=== PATIENT | female | born 1990 | race Caucasian/White ===

== ENCOUNTER 2018-12-30 12:37 | Outpatient (CLI) | payer OTHER ==
[~2018-12-30] VITALS: Ht 170.2 cm; Wt 94.2 kg
[2018-12-30 13:02] VITALS: BP 115/71
[2018-12-30] MEDS ORDERED: [UNRECOGNIZED DRUG - CODE] PO (13:08)
[2018-12-30] MEDS ORDERED: LEVO112T2 PO (13:08)
--- NOTE | 2018-12-30 13:36 | IPNPDOC ---
Text Note Date of Service The patient was seen on 12/30/18. NOTE 28 yo at 34+5 weeks gestation presented to L&D after her dog ran into her belly and she felt some fluid leakage shortly thereafter. This occurred around 11 am this morning. She has not had any leakage since. She denies any bleeding or pain whatsoever. She endorses excellent movement. She had intercourse with her a couple days ago. is uncomplicated. Chaperoned by L&D RN Vitals - VSS, afebrile, normotensive, non tachycardic General - AAOX3, sitting up in bed, NAD Abdomen - Gravid uterus. No fundal tenderness Pelvic - Normal external genitalia. Speculum placed into the vagina and the cervix was visualized. Scant white discharge in the vaginal vault. Negative pooling. Swab obtained of discharge. Negative nitrazine. Cervix closed. Speculum removed. Cervix cl/thick/high to digital exam. GBS swab obtained. Bedside TAUS - Viable SIUP in cephalic presentation. +FCA. JOEL 14.8cm. +gross movement. Microscopy - ferning negative. Nitrazine negative. FHR tracing - Reactive NST, +accels, no decels, moderate variability. No evidence of ruptured membranes or labor. status reassuring. Patient discharged home with return precautions. all questions answered. DO JOSE Craig CHRISTOPHER J. DO Dec 30, 2018 13:36
== END 2018-12-30 13:35 | disposition home or self-care (01) ==
LOC: M LDO 12:37
PROVIDERS: ATTEND Obstetrics & Gynecology
DX: Z04.3 Encounter for examination and observation following other accident (principal); O26.893 Other specified pregnancy related conditions, third trimester; N89.8 Other specified noninflammatory disorders of vagina; W54.1XXA Struck by dog, initial encounter; Y92.89 Other specified places as the place of occurrence of the external cause; Y93.89 Activity, other specified; Y99.8 Other external cause status; O47.03 False labor before 37 completed weeks of gestation, third trimester; Z3A.34 34 weeks gestation of pregnancy
CPT/HCPCS: 59025; 76815; 87081; 87186; G0378; G0463